=== PATIENT | male | born 1945 | race Caucasian/White ===

== ENCOUNTER 2022-04-28 09:18 | Day surgery (SDC) | payer OTHER ==
[2022-04-25 14:05] LABS: Hematocrit 41.9 % (39.6-49.0); Lymphocytes % 28.1 % (15.3-44.8); MCV 92.8 fL (80-100); MPV 8.9 fL (7.6-11.3); RBC Red Blood Cell Count 4.51 M/uL (4.33-5.43)
[2022-04-25 14:08] LABS: Protime INR 1.02
--- NOTE | 2022-04-25 14:14 | RAD REPORT ---
EXAM DESCRIPTION: RAD - Chest Pa And Lat (2 Views) - 04/25/2022 1:41 pm CLINICAL HISTORY: Pre op pending carpal tunnel release COMPARISON: Chest Single View dated 04/29/2017 FINDINGS: Lines: None. Lungs: No evidence of edema or pneumonia. Pleural: No significant pleural effusions or pneumothorax. Cardiac: The heart size is within normal limits. Mediastinum: Within normal limits. Bones: No acute fractures. Other: None IMPRESSION: No acute cardiopulmonary disease.
--- NOTE | 2022-04-27 17:51 | EKG ---
Test Date: 2022-04-25 Test Time: 13:10:44 Molding Machine Operator: MITUL MEASUREMENT RESULTS: Intervals: Rate: 71 [place]: 184 QRSD: 90 QT: 380 QTc: 412 [place]: P: 68 [place]: 184 QRS: 27 T: 51 INTERPRETIVE STATEMENTS: Normal sinus rhythm with sinus arrhythmia Normal ECG Compared to ECG 04/29/2017 13:44:08 Sinus bradycardia no longer present Electronically Signed On 04-27-22 17:46:18 STERILE TECHNICIAN by Edson Munoz
[2022-04-28] MEDS ORDERED: Ringers Lactate 1,000 ML IV ONE (09:27)
[2022-04-28] MEDS ORDERED: CEFAZOLIN SODIUM 2 GM/VIAL ONE (09:28)
[2022-04-28] MEDS ORDERED: FENTANYL CITR 100 MCG/2 ML ONE (09:47)
[2022-04-28] MEDS ORDERED: propofoL 200 MG/20 ML VIAL IV ONE (09:47)
[2022-04-28] MEDS ORDERED: MIDAZOLAM HCL 2 MG/2 ML INJ ONE (09:47)
[2022-04-28] MEDS ORDERED: dexAMETHasone 10 MG/ML VIAL ONE (09:48)
[2022-04-28] MEDS ORDERED: KETOROLAC 30 MG/ML INJ ONE (09:48)
[2022-04-28] MEDS ORDERED: LIDOCAINE 2% MPF 5 ML VIAL ONE (09:48)
[2022-04-28] MEDS ORDERED: BUPIVACAINE 0.25% PF 10 ML VIAL ONE (09:50)
[2022-04-28] MEDS ORDERED: GLYCOPYRROLATE 0.2 MG/ML SYR ONE (10:19)
--- NOTE | 2022-04-28 10:39 | P.BOP ---
Preoperative diagnosis: right carpal tunnel syndrome Postoperative diagnosis: same Primary procedure: right open carpal tunnel release Forgesmith: NONE,NONE Estimated blood loss: 2 cc Specimen: none Findings: see dictation Anesthesia: General Complications: None Implants: none Fluids & blood products: per anesthesia record; TT: 13 mins @ 250 mmHg Transferred to: Recovery Room Condition: Good
[2022-04-28 13:07] VITALS: BP 130/77; TEMP 97.5; O2SAT 100
== END 2022-04-28 12:14 | disposition home or self-care (01) ==
LOC: OR 09:18
PROVIDERS: ATTEND Orthopaedic Surgery Sports Medicine
PROC: 01N50ZZ Release Median Nerve, Open Approach (ICD-10-PCS; principal; 2022-04-28 10:30)
DX: G56.01 Carpal tunnel syndrome, right upper limb (principal)
CPT/HCPCS: 93005; 85025; 80048; 36415; 85610; 85730; 71046; 64721; J2704; J2001; J2250; J3010; J1100; J7120

== ENCOUNTER 2022-06-05 08:06 | Emergency (ER) | payer OTHER ==
--- OUTSIDE RECORDS SUMMARY | 2022-06-05 08:11 | XMS REPORT | Continuity of Care Document ---
:1945 Author Organization [facility] t Address [address] [place] [address] Care Team Providers Name Role Phone Carlos Malone Attending Clinician Carlos Malone Admitting Clinician Unavailable Problems Condition Condition Condition Status Onset Resolution Last Treating Co mments Source Name Details Category Date Date Treatment Clinician Date Carpal Carpal Problem Active 2022-04-15 Didier joe tunnel tunnel 01:16:15 l syndrome syndrome Rashard n (disorder) (disorder) Active Problem 04/15/2022 [facility] Hyperlipid Hyperlipi Problem Active 2022-04-15 Memoria emia demia 01:16:15 l (disorder) (disorder) He rmann Active Problem 04/15/2022 [facility] Hypertensi Hypertens Problem Active 2022-04-15 Memoria ve tyshawn 01:16:15 l disorder, disorder, Herm lauren systemic systemic arterial arterial (disorder) (disorder) Active Problem 04/15/2022 [facility] Paresthesi Paresthes Problem Active 2022-04-15 Memoria a ia 01:16:15 l (finding) (finding) Herm lauren Active Problem 04/15/2022 [facility] [id number] [place] [id number] tunnel Spirit syndrome - [facility] Surgical Aftercare Problem Comm on follow-up following Spir it (finding) surgery of - C HI [facility] Center Allergies, Adverse Reactions, Alerts This patient has no known allergies or adverse reactions. Social History Social Habit Start Date Stop Date Quantity Comments Source History of Tobacco Common Spirit - Use [facility] Social History 2022-03-30 2022-03-30 [facility] 16:48:00 16:48:00 Smoking Status Start Date Stop Date Source Former Smoker 2022-05-24 00:00:00 2022-05-24 00:00:00 Common S pirit - [facility] Ce nter Tobacco smoking status [facility] Medications Ordered Filled Start Stop Current Ordering Indication Dosage Frequency Signature Comments Components Source Medication Medication Date Date Medication? Clinician (SIG) Name Name Acetaminoph Acetaminoph 2021-04 No 1{table Acetaminop en-Codeine en-Codeine 2-20 t_as_ne hen-Codein #3 300-30 #3 300-30 00:00: eded} e #3 MG MG 00 300-30 MG Acetaminoph Acetaminoph 2021-04 No 1{table Acetaminop en-Codeine en-Codeine 2-20 t_as_ne hen-Codein #3 300-30 #3 300-30 00:00: eded} e #3 MG MG 00 300-30 MG Acetaminoph Acetaminoph 2021-04 No 1{table Acetaminop en-Codeine en-Codeine 2-20 t_as_ne hen-Codein #3 300-30 #3 300-30 00:00: eded} e #3 MG MG 00 300-30 MG Acetaminoph Acetaminoph 2021-04 No 1{table Acetaminop en-Codeine en-Codeine 2-20 t_as_ne hen-Codein #3 300-30 #3 300-30 00:00: eded} e #3 MG MG 00 300-30 MG Acetaminoph Acetaminoph 2021-04 No 1{table Acetaminop en-Codeine en-Codeine 2-20 t_as_ne hen-Codein #3 300-30 #3 300-30 00:00: eded} e #3 MG MG 00 300-30 MG finasteride Yes TAKE 1 Didier joe 5 mg oral 9-29 TABLET BY l tablet 13:47: MOUTH Tommy 00 EVERY DAY simvastatin 2021-0 Yes TAKE 1 Didier joe 80 mg oral 9-29 TABLET BY l tablet 13:47: MOUTH [place] 00 EVERY DAY fenofibrate 2021- Yes TAKE 1 Didier joe 145 mg oral 9-29 TABLET BY l tablet 13:47: MOUTH [place] 00 EVERY DAY hydrochloro 2021-0 Yes TAKE 1 Didier joe thiazide-va 01-26 TABLET BY l lsartan 13:47: MOUTH [place] 12.5 mg-320 00 EVERY DAY mg oral tablet Metoprolol 0 Yes TAKE 1 Memor ia Succinate 01-26 TABLET BY l ER 100 mg 13:47: MOUTH Tommy oral 00 EVERY DAY tablet, extended release Fenofibrate Fenofibrate No Fenofibrat e Finasteride Finasteride No Finasterid e Metoprolol Metoprolol No Metoprolol Succinate Succinate Succinate ER ER ER Simvastatin Simvastatin No Simvastati n Valsartan-h Valsartan-h No Valsartan- ydroCHLOROt ydroCHLOROt hydroCHLOR hiazide hiazide Othiazide Fenofibrate Fenofibrate No Fenofibrat e Finasteride Finasteride No Finasterid e Valsartan-h Valsartan-h No Valsartan- ydroCHLOROt ydroCHLOROt hydroCHLOR hiazide hiazide Othiazide Simvastatin Simvastatin No Simvastati n Metoprolol Metoprolol No Metoprolol Succinate Succinate Succinate ER ER ER Fenofibrate Fenofibrate No Fenofibrat e Finasteride Finasteride No Finasterid e Valsartan-h Valsartan-h No Valsartan- ydroCHLOROt ydroCHLOROt hydroCHLOR hiazide hiazide Othiazide Simvastatin Simvastatin No Simvastati n Metoprolol Metoprolol No Metoprolol Succinate Succinate Succinate ER ER ER Simvastatin Simvastatin No Simvastati n Finasteride Finasteride No Finasterid e Fish Oil Fish Oil No Fish Oil Metoprolol Metoprolol No Metoprolol Succinate Succinate Succinate ER ER ER Fenofibrate Fenofibrate No Fenofibrat e Valsartan-h Valsartan-h No Valsartan- ydroCHLOROt ydroCHLOROt hydroCHLOR hiazide hiazide Othiazide Simvastatin Simvastatin No Simvastati n Fenofibrate Fenofibrate No Fenofibrat e Valsartan-h Valsartan-h No Valsartan- ydroCHLOROt ydroCHLOROt hydroCHLOR hiazide hiazide Othiazide Metoprolol Metoprolol No Metoprolol Succinate Succinate Succinate ER ER ER Fish Oil Fish Oil No Fish Oil Finasteride Finasteride No Finasterid e Valsartan-h Valsartan-h No Valsartan- ydroCHLOROt ydroCHLOROt hydroCHLOR hiazide hiazide Othiazide Fenofibrate Fenofibrate No Fenofibrat e Fish Oil Fish Oil No Fish Oil Finasteride Finasteride No Finasterid e Metoprolol Metoprolol No Metoprolol Succinate Succinate Succinate ER ER ER Simvastatin Simvastatin No Simvastati n Vital Signs Vital Name Observation Time Observation Value Comments Source height 2022-05-22 10:30:00 66 [in_i] [facility] weight 2022-05-22 10:30:00 184 [lb_av] [facility] temperature 2022-05-22 10:30:00 98.0 [degF] [facility] 2022-05-22 10:30:00 29.7 kg/m2 [facility] blood pressure 2022-05-22 10:30:00 157 mm[Hg] Common Spirit - systolic [facility] blood pressure 2022-05-22 10:30:00 75 mm[Hg] Common Spirit - diastolic [facility] height 2022-05-05 08:30:00 66 [in_i] [facility] weight 2022-05-05 08:30:00 184 [lb_av] [facility] temperature 2022-05-05 08:30:00 97.3 [degF] [facility] bmi 2022-05-05 08:30:00 29.7 kg/m2 [facility] blood pressure 2022-05-05 08:30:00 124 mm[Hg] Common Spirit - systolic [facility] blood pressure 2022-05-05 08:30:00 72 mm[Hg] Common Spirit - diastolic [facility] height 2022-04-19 08:15:00 66 [in_i] [facility] weight 2022-04-19 08:15:00 184 [lb_av] [facility] temperature 2022-04-19 08:15:00 97.9 [degF] [facility] bmi 2022-04-19 08:15:00 29.7 kg/m2 [facility] blood pressure 2022-04-19 08:15:00 132 mm[Hg] Common Spirit - systolic [facility] blood pressure 2022-04-19 08:15:00 76 mm[Hg] Common Spirit - diastolic [facility] height 2022-03-14 14:30:00 66 [in_i] Common [facility] weight 2022-03-14 14:30:00 184 [lb_av] Common [facility] temperature 2022-03-14 14:30:00 97.1 [degF] [facility] bmi 2022-03-14 14:30:00 29.7 kg/m2 [facility] blood pressure 2022-03-14 14:30:00 134 mm[Hg] Common Spirit - systolic [facility] blood pressure 2022-03-14 14:30:00 81 mm[Hg] Common Spirit - diastolic [facility] Systolic (mm Hg) 2022-02-27 13:17:00 Didier rial [place] Diastolic (mm Hg) 2022-02-27 13:17:00 Mem orial Tommy Heart Rate 2022-02-27 13:17:00 [facility] [place] Height 2022-02-27 13:17:00 5 [ft_i] [facility] Weight 2022-02-27 13:17:00 [facility] BMI Calculated 2022-02-27 13:17:00 Memori al [place] Systolic (mm Hg) 2022-01-26 13:44:00 Didier rial Tommy Diastolic (mm Hg) 2022-01-26 13:44:00 Mem orial [place] Heart Rate 2022-01-26 13:44:00 [facility] Tommy Respitory Rate 2022-01-26 13:44:00 Memori al Tommy Height 2022-01-26 13:44:00 162.56 cm [facility] Weight 2022-01-26 13:44:00 Angela Sanders BMI Calculated 2022-01-26 13:44:00 Anastacio Meredith Procedures Procedure Date / Time Performed Performing Clinician [facility] e Back care<sup>1</sup> Angela lawrence Encounters Start End Encounter Admission Attending Care Care Encounter Source Date/Time Date/Time Type Type Clinicians Facility Department ID 2022-03-14 Outpatient STLMLC STLMLC [id number] Common 14:18:02 [id number] [facility] 2022-05-22 2022-05-22 NON-BILLAB STLMLC STLMLC [id number] Common 00:00:00 00:00:00 LE VISIT [facility] 2022-05-05 2022-05-05 NON-BILLAB STLMLC STLMLC [id number] Common 00:00:00 00:00:00 LE VISIT [facility] 2022-04-19 2022-04-19 OFFICE STLMLC STLMLC [id number] Co mmon 00:00:00 00:00:00 VISIT [facility] LEVEL 4 [facility] 2022-04-18 2022-04-18 (TEL) STLMLC STLMLC [id number] Co mmon 00:00:00 00:00:00 [facility] 2022-04-12 2022-04-12 Ambulatory MHIE MNA [id number] Memoria 17:45:00 17:45:00 Pre-Reg Neurology 02 marylu Sanders 2022-04-12 2022-04-12 Outpatient MHIE MHIE [id number] Memoria 11:45:00 11:45:00 02 marylu Tommy 2022-04-12 2022-04-12 Outpatient CHRISTIAN MaloneSCHTERENCE MHMISCHER [id number] 11:45:00 11:45:00 Carlos Dickerson 2022-03-22 2022-03-22 (TEL) STLMLC STLMLC [id number] Co mmon 00:00:00 00:00:00 [facility] 2022-03-14 2022-03-14 OFFICE STLMLC STLMLC [id number] Co mmon 00:00:00 00:00:00 VISIT NEW Spir it PT LEVEL 4 - [facility] 2022-02-27 2022-02-28 Outpatient nullFlavo MNA [id number] Memoria 13:15:00 04:59:59 r Neurology 01 l [place] 2022-02-27 2022-02-27 Outpatient CHRISTIAN MaloneSCHER MHMISCHER [id number] 08:15:00 23:59:59 Carlos Tuan 2022-02-27 2022-02-27 Outpatient MHIE MHIE [id number] Memoria 08:15:00 08:15:00 01 l [place] 2022-02-21 2022-02-23 Outside nullFlavo MNA [id number] Memoria 15:44:00 04:59:59 Medical r Neurology 00 l Records Ivelisse Sanders 2022-02-21 2022-02-22 Outpatient MHMISCHER MHMISCHER [id number] 10:44:00 23:59:59 00 2022-01-26 2022-01-27 Outpatient nullFlavo MNA [id number] Memoria 14:00:00 04:59:59 r Neurology 00 l Ivelisse Sanders 2022-01-26 2022-01-26 Outpatient CHRISTIAN MaloneSCHER MHMISCHER [id number] 09:00:00 23:59:59 Carlos 00 Tuan 2022-01-26 2022-01-26 Outpatient MHIE MHIE [id number] Memoria 09:00:00 09:00:00 00 marylu Sanders Results This patient has no known results.
[2022-06-05 08:36] LABS: Urine Blood 3+ (Negative); Urine Glucose Negative (Negative); Urine Protein Negative (Negative); Urine Specific Gravity <=1.005 (1.005-1.030)
[2022-06-05 08:44] LABS: Urine Bacteria <20 /HPF (<20)
--- NOTE | 2022-06-05 08:54 | ER ---
Nurse's Notes [facility] Name: Geoffrey Martínez Age: 76 yrs Sex: Male : 1945 Arrival Date: 06/05/2022 Time: 08:10 Bed 13 Private MD: MILLY ESQUIVEL Diagnosis: UTI/ Urinary tract infection, site not specified Presentation: 06/05 08:16 Chief complaint: Patient states: burning with urination and blood in urine that began ss Stepan morning. Pt reports that it cleared up, but started again this morning. Coronavirus screen: Client denies travel out of the [place] in the last 14 days. Ebola Screen: Patient denies exposure to infectious person. Patient denies travel to an Ebola-affected area in the 21 days before illness onset. Initial Sepsis Screen: Does the patient meet any 2 criteria? No. Patient's initial sepsis screen is negative. Does the patient have a suspected source of infection? No. Patient's initial sepsis screen is negative. Risk Assessment: Do you want to hurt yourself or someone else? Patient reports no desire to harm self or others. Onset of symptoms was May 2022. 08:16 Method Of Arrival: Ambulatory ss 08:16 Acuity: AKUA 3 ss Historical: - Allergies: 08:18 Robaxin; ss - Home Meds: 08:19 simvastatin 80 mg Oral tab daily [Active]; fenofibrate 145 mg oral once daily [Active]; ss metoprolol succinate 100 mg oral Tb24 1 tab once daily [Active]; valsartan-hydrochlorothiazide 320-12.5 mg oral tab 1 tab once daily [Active]; 08:20 aspirin 81 mg Oral TbEC 1 tab once daily [Active]; Omeprazole Oral [Active]; ss - PMHx: 08:18 High Cholesterol; Hypertension; enlarged prostate; ss - Immunization history:: Client reports receiving the 2nd dose of the Covid vaccine. - Social history:: Smoking status: Patient denies any tobacco usage or history of. Screenin:30 [facility] ED Fall Risk Assessment (Adult) History of falling in the last 3 months, ph including since admission No falls in past 3 months (0 pts). Abuse screen: Denies threats or abuse. Denies injuries from another. Nutritional screening: No deficits noted. Tuberculosis screening: No symptoms or risk factors identified. Assessment: 08:30 General: Appears in no apparent distress. Behavior is calm, cooperative, appropriate ph for age. Pain: Complains of pain in pelvis. Neuro: Level of Consciousness is awake, alert, obeys commands, Oriented to person, place, time, situation. Cardiovascular: Capillary refill < 3 seconds in bilateral fingers Patient's skin is warm and dry. Respiratory: Airway is patent Respiratory effort is even, unlabored. : Reports burning with urination, blood in urine. Derm: Skin is healthy with good turgor, Skin is pink, warm \T\ dry. Vital Signs: 08:16 BP 162 / 91; Pulse 81; Resp 16; Temp 97.9(TE); Pulse Ox 100% on R/A; Weight 83.91 kg; ss Height 5 ft. 6 in. (167.64 cm); Pain 0/10; 08:16 Body Mass Index 29.86 (83.91 kg, 167.64 cm) ED Course: 08:10 Patient arrived in ED. rg4 08:11 MILLY ESQUIVEL is Private Physician. rg4 08:11 Lynn Juarez FNP-C [facility]. snw 08:11 Gabriel Saravia MD is Attending Physician. snw 08:18 Triage completed. ss 08:18 Arm band placed on right wrist. 08:21 Ivonne Deluna, RN is Primary Nurse. ph 08:30 Patient has correct armband on for positive identification. Bed in low position. Call ph light in reach. 08:53 MILLY ESQUIVEL is Referral Physician. snw 09:26 No provider procedures requiring assistance completed. Patient did not have IV access ph during this emergency room visit. Administered Medications: 09:15 Drug: Rocephin (cefTRIAXone) 1 grams Route: IM; Site: right gluteus; 5 09:25 Follow up: Response: No adverse reaction ph Medication: 08:45 VIS not applicable for this client. ph Outcome: 08:53 Discharge ordered by . snw 09:26 Patient left the ED. jh5 09:26 Discharged to home ambulatory. ph 09:26 Condition: good 09:26 Discharge instructions given to patient, Instructed on discharge instructions, follow up and referral plans. medication usage, Demonstrated understanding of instructions, follow-up care, medications, Prescriptions given X 1. Signatures: Lynn Juarez FNP-C FNP-Csnw Dodie Rodriguez RN RN ss Ivonne Deluna RN RN Debra Avalos 4 Crista Guerrero RN RN jh5 Corrections: (The following items were deleted from the chart) 08:21 08:20 Allergies: Aspirin; [facility]
--- NOTE | 2022-06-05 08:54 | EDPHYS ---
Physician Documentation [facility] Name: Geoffrey Martínez Age: 76 yrs Sex: Male : 1945 Arrival Date: 06/05/2022 Time: 08:10 Bed 13 Private MD: MILLY GUTIERREZ ED Physician Gabriel Saravia HPI: 06/05 08:31 This 76 yrs old Male presents to ER via Ambulatory with complaints of Blood in Urine. snw 08:31 The patient presents with urinary symptoms, dysuria, hematuria. Onset: The snw symptoms/episode began/occurred acutely, this morning, 3 day(s) ago, and became persistent. Associated signs and symptoms: Pertinent positives: hematuria, Pertinent negatives: abdominal pain, fever, nausea, vomiting. Severity of symptoms: At their worst the symptoms were mild. The patient has not experienced similar symptoms in the past. The patient has not recently seen a physician, the patient's primary care provider is Dr. Gutierrez, saw a Dr. Colin years ago and was placed on Finasteride for BPH, no issues since. Takes daily ASA, no other anticoagulants. Historical: - Allergies: 08:18 Robaxin; ss - Home Meds: 08:19 simvastatin 80 mg Oral tab daily [Active]; fenofibrate 145 mg oral once daily [Active]; ss metoprolol succinate 100 mg oral Tb24 1 tab once daily [Active]; valsartan-hydrochlorothiazide 320-12.5 mg oral tab 1 tab once daily [Active]; 08:20 aspirin 81 mg Oral TbEC 1 tab once daily [Active]; Omeprazole Oral [Active]; ss - PMHx: 08:18 High Cholesterol; Hypertension; enlarged prostate; ss - Immunization history:: Client reports receiving the 2nd dose of the Covid vaccine. - Social history:: Smoking status: Patient denies any tobacco usage or history of. ROS: 08:30 Constitutional: Negative for fever, chills, and weight loss, Eyes: Negative for injury, snw pain, redness, and discharge, ENT: Negative for injury, pain, and discharge, Neck: Negative for injury, pain, and swelling, Cardiovascular: Negative for chest pain, palpitations, and edema, Respiratory: Negative for shortness of breath, cough, wheezing, and pleuritic chest pain, Abdomen/GI: Negative for abdominal pain, nausea, vomiting, diarrhea, and constipation, Back: Negative for injury and pain, MS/Extremity: Negative for injury and deformity, Skin: Negative for injury, rash, and discoloration, Neuro: Negative for headache, weakness, numbness, tingling, and seizure, Psych: Negative for depression, anxiety, suicide ideation, homicidal ideation, and hallucinations. 08:30 : Positive for urinary symptoms, hematuria, burning with urination. Exam: 08:30 Constitutional: This is a well developed, well nourished patient who is awake, alert, snw and in no acute distress. Head/Face: Normocephalic, atraumatic. Eyes: Pupils equal round and reactive to light, extra-ocular motions intact. Lids and lashes normal. Conjunctiva and sclera are non-icteric and not injected. Cornea within normal limits. Periorbital areas with no swelling, redness, or edema. ENT: Nares patent. No nasal discharge, no septal abnormalities noted. Tympanic membranes are normal and external auditory canals are clear. Oropharynx with no redness, swelling, or masses, exudates, or evidence of obstruction, uvula midline. Mucous membranes moist. Neck: Trachea midline, no thyromegaly or masses palpated, and no cervical lymphadenopathy. Supple, full range of motion without nuchal rigidity, or vertebral point tenderness. No Meningismus. Chest/axilla: Normal chest wall appearance and motion. Nontender with no deformity. No lesions are appreciated. Cardiovascular: Regular rate and rhythm with a normal S1 and S2. No gallops, murmurs, or rubs. Normal PMI, no JVD. No pulse deficits. Respiratory: Lungs have equal breath sounds bilaterally, clear to auscultation and percussion. No rales, rhonchi or wheezes noted. No increased work of breathing, no retractions or nasal flaring. Abdomen/GI: Soft, non-tender, with normal bowel sounds. No distension or tympany. No guarding or rebound. No evidence of tenderness throughout. Back: No spinal tenderness. No costovertebral tenderness. Full range of motion. Skin: Warm, dry with normal turgor. Normal color with no rashes, no lesions, and no evidence of cellulitis. MS/ Extremity: Pulses equal, no cyanosis. Neurovascular intact. Full, normal range of motion. Neuro: Awake and alert, GCS 15, oriented to person, place, time, and situation. Cranial nerves II-XII grossly intact. Motor strength 5/5 in all extremities. Sensory grossly intact. Cerebellar exam normal. Normal gait. Psych: Awake, alert, with orientation to person, place and time. Behavior, mood, and affect are within normal limits. Vital Signs: 08:16 BP 162 / 91; Pulse 81; Resp 16; Temp 97.9(TE); Pulse Ox 100% on R/A; Weight 83.91 kg; ss Height 5 ft. 6 in. (167.64 cm); Pain 0/10; 08:16 Body Mass Index 29.86 (83.91 kg, 167.64 cm) ss MDM: 08:25 Patient medically screened. snw 08:34 Differential diagnosis: UTI, urinary retention, prostatitis, urethritis. Data reviewed: snw vital signs, nurses notes. 06/05 08:13 Order name: Urine Culture snw 06/05 08:13 Order name: Urine Microscopic Only; Complete Time: 08:55 snw 06/05 08:13 Order name: Urine Dipstick-Ancillary (obtain specimen); Complete Time: 08:36 snw 06/05 08:36 Order name: Urine Dipstick-Ancillary; Complete Time: 08:37 EDMS Administered Medications: 09:15 Drug: Rocephin (cefTRIAXone) 1 grams Route: IM; Site: right gluteus; [facility] 09:25 Follow up: Response: No adverse reaction ph Disposition Summary: 06/05/22 08:53 Discharge Ordered Location: Home snw Condition: Stable snw Diagnosis - UTI/ Urinary tract infection, site not specified snw Followup: snw - With: Emergency Department - When: As needed - Reason: Worsening of condition Followup: snw - With: MILLY GUTIERREZ - When: 2 - 3 days - Reason: Recheck today's complaints, Continuance of care, Re-evaluation by your physician Discharge Instructions: - Discharge Summary Sheet snw - Dysuria snw - Urinary Tract Infection, Adult snw - Rehydration, Adult snw Forms: - Medication Reconciliation Form snw - Thank You Letter snw - Antibiotic Education snw - Prescription Opioid Use snw Prescriptions: - Augmentin 875-125 mg Oral Tablet - take 1 tablet by ORAL route every 12 hours for 10 days; 20 tablet; Refills: 0, snw Product Selection Permitted Signatures: Dispatcher [employer] EDMS Lynn Juarez, CHIEF GUARD-C CHIEF GUARD-Csnw Dodie Rodriguez RN RN ss Crista Guerrero RN RN jh5 Ivonne Deluna RN ph Corrections: (The following items were deleted from the chart) 08:21 08:20 Allergies: Aspirin; [facility]
[2022-06-05] MEDS ORDERED: CEFTRIAXONE 1000 MG/VIAL ONE (09:01)
[2022-06-05 09:30] VITALS: BP 162/91; TEMP 97.9; O2SAT 100
== END 2022-06-05 09:26 | disposition home or self-care (01) ==
LOC: ER 08:06
DX: N39.0 Urinary tract infection, site not specified (principal)
CPT/HCPCS: 81003; 81015; 87086; 87088